=== PATIENT | female | born 2000 | race Caucasian/White ===

== ENCOUNTER 2021-10-20 15:23 | Emergency (ER) | payer SELFPAY ==
[2021-10-20 15:39] VITALS: BP 115/77; PULSE 78; RESP 14; TEMP 37.1; O2SAT 99; BMI 20.9
--- NOTE | 2021-10-20 18:13 | W.ED.NAVMDI ---
HPI - Nausea/Vomiting/Diarrhea General: Chief complaint: Nausea/Vomiting/Diarrhea Stated complaint: fever,n/v, chills Time Seen by Provider: 10/20/21 18:13 History of Present Illness: HPI Narrative: 21-year-old female comes in with a 4-day history of illness. Patient reports 4 days ago she started having a fever with some nausea and vomiting for about 24 hours. Since then patient feels like she has increased cough and congestion in her chest. Patient appears mildly unwell but not toxic. Patient appears in no pain. Patient is alert and oriented. Patient does need a work note in order to return back to work. Patient reports no recent episodes of vomiting or fever over the last 3 days. Associated nausea: Yes Associated symtoms: Reports nausea Review of Systems General: Reports: 10 or more systems reviewed and unremarkable except in HPI and below Const: Reports: fever(s) Resp: Reports: non-productive cough GI: Reports: nausea and vomiting Physical Exam Const: COMMON NORMALS: no acute distress and patient oriented x3 GENERAL APPEARANCE: cooperative HENMT: COMMON NORMALS: normocephalic, TM's normal bilaterally and Normal external nose present HEAD & SCALP: normal to inspection and normocephalic NOSE: Normal external nose present TYMPANIC MEMBRANE: TM's normal bilaterally MOUTH: Normal oral and palatal mucosa present THROAT: posterior oropharynx normal Eye: GENERAL EYE: appearance normal, both eyes and all related structures Neck/C-Spine: COMMON NORMALS: full ROM Lymph: LYMPHATIC: no lymphadenopathy noted Chest: COMMONS NORMALS: normal inspection of the chest Resp: COMMON NORMALS: normal respiratory effort EFFORT & INSPECTION: Yes able to speak in complete sentences Cardio: COMMON NORMALS: regular rate and regular rhythm RATE: regular rate RHYTHM: regular rhythm GI: COMMON NORMALS: Soft to palpation PALPATION: Yes Soft to palpation and Yes Tenderness to palpation present (GI) (mild epigastric tenderness) : COMMON NORMALS: Yes no CVA tenderness BLADDER/KIDNEY EXAM: Yes no CVA tenderness Back/Pelvis: COMMON NORMALS: no CVA tenderness and thoracic and lumbar spine normal to inspection Extremity: COMMON NORMALS: normal to inspection Neuro: COMMON NORMALS: patient oriented x3 and moves all extremities Psych: COMMON NORMALS: mental status grossly normal and cooperative Skin: COMMON NORMALS: no rashes or lesions noted GENERAL SKIN EXAM: no rashes or lesions noted Course Vital Signs: Vital signs: Vital Signs Temperature 98.7 F 10/20/21 21:34 Pulse Rate 77 10/20/21 21:34 Respiratory Rate 15 10/20/21 21:34 Blood Pressure 115/77 10/20/21 21:34 Pulse Oximetry 99 10/20/21 21:34 MDM - Nausea/Vomiting/Diarrhea MDM Narrative: Medical decision making narrative: Patient comes in today for illness for 4 days. On exam patient appears mildly unwell but not toxic. Lungs were clear to auscultation. Abdomen was soft nontender. Skin was warm and dry. Differential diagnosis includes viral syndrome, upper respiratory infection, COVID-19, dehydration. Patient was given 1L IV fluids of saline for concerns of dehydration. Patient felt better after the fluids. COVID-19 test did come back positive. Patient did have a large amount of white blood cells in her urine which I went ahead and treated with some Cipro for 5 days. Reviewed exam with patient with recommendations for follow-up and quarantine for protection of the community. Patient reported understanding and agreed to plan. Lab Data: Labs: Lab Results 10/20/21 10/20/21 10/20/21 17:15 18:53 18:53 WBC 4.6 10^3/uL 10^3/ uL (4.0-10.0) RBC 4.81 10^6/uL 10^6 /uL (4.1-5.3) Hgb 14.3 g/dL g/dL (11.5-15.3) Hct 42.1 % % (37.0-47.0) MCV 87.5 fl fl (81-99) MCH 29.7 pg pg (28.0-34.0) MCHC 34.0 g/dL g/dL (30.0-36.0) RDW 12.8 % % (12.1-15.1) Plt Count 185 10^3/cmm 10^3 /cmm (130-400) MPV 10.8 fL H fL (7.4-10.4) Neut % (Auto) 51.3 % % Lymph % (Auto) 34.9 % % [place] % (Auto) 11.9 % % Eos % (Auto) 1.5 % % Baso % (Auto) 0.2 % % Neut # (Auto) 2.33 10^3/uL 10^3 /uL (1.8-7.7) Lymph # (Auto) 1.6 10^3/uL 10^3/ uL (0.8-4.8) [place] # (Auto) 0.5 10^3/uL 10^3/ uL (0.2-0.9) Eos # (Auto) 0.1 10^3/uL 10^3/ uL (0.0-0.8) Baso # (Auto) 0.0 10^3/uL 10^3/ uL (0.0-0.1) Nucleated RBC % (a uto) 0 % % Nucleated RBCs # 0.0 /100WBC /100W BC Sodium 137 mmol/L mmol/L (136-145) Potassium 3.8 mmol/L mmol/L (3.5-5.1) Chloride 101 mmol/L mmol/L (98-107) Carbon Dioxide 22 mmol/L mmol/L (22-29) Anion Gap 17.8 (5-19) BUN 10 mg/dL mg/dL (6-20) Creatinine 0.6 mg/dL mg/dL (0.5-0.9) GFR Calculation 123.9 mL/min mL/m in (90-130) Glucose 67 mg/dL mg/dL (65-115) Calculated Osmolal ity 281 mOsm/kg L mOs m/kg (285-295) Calcium 8.3 mg/dL L mg/dL (8.5-10.5) Total Bilirubin 0.2 mg/dL mg/dL (0.15-1.2) AST 14 U/L U/L (0-32) ALT 8 U/L U/L (0-33) Alkaline Phosphata se 52 IU/L IU/L (35-105) Total Protein 7.0 g/dL g/dL (6.6-8.7) Albumin 4.3 g/dL g/dL (3.5-5.2) Globulin 2.7 g/dL g/dL (1.3-4.6) Lipase 17 U/L U/L (13-60) HCG, Qual Urine Color Yellow (Yellow) Urine Appearance Clear (CLEAR) Urine pH 5 (5-7) Ur Specific Gravit y 1.020 (1.005-1.030) Urine Protein Neg (Negative) Urine Glucose (UA) Norm (Normal) Urine Ketones 1+ H (Negative) Urine Blood Neg (Negative) Urine Nitrate Negative (Negative) Urine Bilirubin 1+ H (Negative) Urine Urobilinogen Norm mg/dL mg/dL (Negative) Ur Leukocyte Radha ase 2+ H (Negative) Urine RBC 0-4 /hpf H /hpf (0-2) Urine WBC 15-25 /hpf H /hpf (0-5) Ur Squamous Epith Cells 10-15 /hpf H /hpf (0-5) Amorphous Sediment Not Reportable Urine Bacteria 1+ /hpf H /hpf (NONE) Urine Mucus 3+ /hpf /hpf Coronavirus 229E ( PCR) SARS-CoV-2 (PCR) 10/20/21 10/20/21 18:53 19:22 WBC RBC Hgb Hct MCV MCH MCHC RDW Plt Count MPV Neut % (Auto) Lymph % (Auto) [place] % (Auto) Eos % (Auto) Baso % (Auto) Neut # (Auto) Lymph # (Auto) [place] # (Auto) Eos # (Auto) Baso # (Auto) Nucleated RBC % (a uto) Nucleated RBCs # Sodium Potassium Chloride Carbon Dioxide Anion Gap BUN Creatinine GFR Calculation Glucose Calculated Osmolal ity Calcium Total Bilirubin AST ALT Alkaline Phosphata se Total Protein Albumin Globulin Lipase HCG, Qual Negative (Negative) Urine Color Urine Appearance Urine pH Ur Specific Gravit y Urine Protein Urine Glucose (UA) Urine Ketones Urine Blood Urine Nitrate Urine Bilirubin Urine Urobilinogen Ur Leukocyte Radha ase Urine RBC Urine WBC Ur Squamous Epith Cells Amorphous Sediment Urine Bacteria Urine Mucus Coronavirus 229E ( PCR) Not detected (NOT DETECT) SARS-CoV-2 (PCR) Detected A (NOT DETECT) Discharge Plan Discharge Patient Disposition: Home Clinical Impression: Viral syndrome, COVID-19 UTI (urinary tract infection) Qualifiers: Urinary tract infection type: acute cystitis Hematuria presence: without hematuria Qualified Code(s): N30.00 - Acute cystitis without hematuria Condition: Stable Prescriptions: New Cipro 500 mg tablet 500 mg PO BID Qty: 9 RF: 0 Discharge Orders: Discharge ED (Routine); Ordered 10/20/21 Ordered By: Favio Douglas Discharge Diet: Usual diet Discharge Activity: Increase activity as tolerated Patient Instructions: Viral Syndrome (ED), Opioid Safety Activity Restrictions/Additional Instructions: Drink plenty of water and fluids. Activity as tolerated. Follow-up with primary care for further instruction. Return to the ER for new concerns or worsening symptoms. Stand Alone Forms: Work/School Release Coding Level of Care Code ED Sr Account Executive for [employer] Fwd Exam Comprehensive
--- NOTE | 2021-10-20 18:45 | XRR_ITS ---
PROCEDURE INFORMATION: Exam: XR Chest Exam date and time: 10/20/2021 6:45 PM Age: 21 years old Clinical indication: Pain; Cough; On breathing; Additional info: Cough, chest discomfort TECHNIQUE: Imaging protocol: XR of the chest. Views: 1 view. COMPARISON: No relevant prior studies available. FINDINGS: Lungs: Unremarkable. No consolidation. Pleural spaces: Unremarkable. No pleural effusion. No pneumothorax. Heart/Mediastinum: Unremarkable. No cardiomegaly. Bones/joints: Unremarkable. XR/XR chest 1V portable [id number] IMPRESSION: No acute findings.
[2021-10-20] MEDS: sodium chloride 0.9% 1,000 ML 999 ML IV (19:30)
[2021-10-20 19:34] LABS: Basophils % 0.2 %; Eosinophils # 0.1 10^3/uL (0.0-0.8); Eosinophils % 1.5 %; Hematocrit 42.1 % (37.0-47.0); Hemoglobin 14.3 g/dL (11.5-15.3); Lymphocytes # 1.6 10^3/uL (0.8-4.8); Lymphocytes % 34.9 %; Mean Corpuscular Hemoglobin 29.7 pg (28.0-34.0); Mean Corpuscular Volume 87.5 fl (81-99); Mean Platelet Volume 10.8 fL (7.4-10.4); Monocytes # 0.5 10^3/uL (0.2-0.9); Monocytes % 11.9 %; Neutrophils # 2.33 10^3/uL (1.8-7.7); Neutrophils % 51.3 %; Nucleated Red Blood Cells % 0 %; Platelet Count 185 10^3/cmm (130-400); Red Blood Count 4.81 10^6/uL (4.1-5.3); Red Cell Distribution Width 12.8 % (12.1-15.1); White Blood Count 4.6 10^3/uL (4.0-10.0)
[2021-10-20 19:40] LABS: HCG, Serum Qual Negative (Negative)
[2021-10-20 19:43] VITALS: BP 115/77; PULSE 77; RESP 15; TEMP 37.1; O2SAT 99
[2021-10-20 19:50] LABS: Alanine Aminotransferase 8 U/L (0-33); Albumin Level 4.3 g/dL (3.5-5.2); Alkaline Phosphatase 52 IU/L (35-105); Anion Gap 17.8 (5-19); Aspartate Amino Transferase 14 U/L (0-32); Blood Urea Nitrogen 10 mg/dL (6-20); Calcium 8.3 mg/dL (8.5-10.5); Carbon Dioxide 22 mmol/L (22-29); Chloride 101 mmol/L (98-107); Globulin 2.7 g/dL (1.3-4.6); Glomerular Filtration Rate 123.9 mL/min (90-130); Glucose 67 mg/dL (65-115); Lipase 17 U/L (13-60); Osmolality Calculated 281 mOsm/kg (285-295); Potassium 3.8 mmol/L (3.5-5.1); Sodium 137 mmol/L (136-145); Total Bilirubin 0.2 mg/dL (0.15-1.2)
[2021-10-20 20:00] VITALS: BP 115/77; PULSE 77; RESP 15; TEMP 37.1; O2SAT 99
[2021-10-20 20:17] LABS: Add Urine Culture? No; Add Urine Microscopic? YES; Bacteria Urine 1+ /hpf; Bilirubin Urine 1+ (Negative); Blood Urine Neg (Negative); Glucose Urine UA Norm (Normal); Ketones Urine 1+ (Negative); Leukocyte Esterase Urine 2+ (Negative); Mucus Urine 3+ /hpf; Nitrate Urine Negative (Negative); Protein Urine Neg (Negative); RBC Urine 0-4 /hpf (0-2); Urine Appearance Clear (CLEAR); Urine Color Yellow (Yellow); Urobilinogen Urine Norm (Negative); WBC Urine 15-25 /hpf (0-5); pH Urine 5 (5-7)
[2021-10-20 21:05] LABS: Adenovirus Not Detected (NOT DETECT); Chlamydia Pneumoniae Not Detected (NOT DETECT); Coronavirus 229E,HKU1,NL63,OC4 Not Detected (NOT DETECT); Human Metapneumovirus Not Detected (NOT DETECT); Human Rhinovirus/Enterovirus Not Detected (NOT DETECT); Influenza A Not Detected (NOT DETECT); Influenza A H1 Not Detected (NOT DETECT); Influenza A H1-2009 Not Detected (NOT DETECT); Influenza A H3 Not Detected (NOT DETECT); Influenza B Not Detected (NOT DETECT); Mycoplasma Pneumoniae Not Detected (NOT DETECT); Parainfluenza Virus Type 1 Not Detected (NOT DETECT); Parainfluenza Virus Type 2 Not Detected (NOT DETECT); Parainfluenza Virus Type 3 Not Detected (NOT DETECT); Parainfluenza Virus Type 4 Not Detected (NOT DETECT); Respiratory Syncytial Virus A Not Detected (NOT DETECT); Respiratory Syncytial Virus B Not Detected (NOT DETECT); SARS-COV-2 Detected (NOT DETECT)
[2021-10-20 21:34] VITALS: BP 115/77; PULSE 77; RESP 15; TEMP 37.1; O2SAT 99
[2021-10-20] MEDS: ciprofloxacin 500 mg Tablet PO (21:34)
== END 2021-10-20 21:38 | disposition home or self-care (01) ==
PROVIDERS: Emergency Medicine; Emergency Provider Nurse Practitioner Family
DX: U07.1 COVID-19 (principal); N30.00 Acute cystitis without hematuria
CPT/HCPCS: 71045; 80053; 81001; 83690; 84703; 85025; 87635; 96360; 99283; J7030